=== PATIENT | female | born 1945 | race Caucasian/White ===

== ENCOUNTER 2017-06-19 01:06 | Inpatient (IN) | payer MEDICARE ==
[~2017-06-19] VITALS: Ht 172.7 cm; Wt 77.8 kg
[~2017-06-19 01:06] MED LIST: METO25TA2 PO; TELM40TA PO
[2017-06-19] MEDS ORDERED: blood pressure med (01:36)
[2017-06-19] MEDS ORDERED: MONT10TA6 PO (01:36)
[2017-06-19] MEDS ORDERED: FAMO-79 PO (01:36)
[2017-06-19] MEDS ORDERED: METOPROLOL 1 MG/ML, 5ML ONE ×3 (01:55→02:32)
[2017-06-19] MEDS: METOPROLOL 1 MG/ML, 5ML IVPush PRN ×3 (01:58→02:36)
[2017-06-19] MEDS ORDERED: SODIUM CHLORIDE 0.9% 1,000ML IVBOLUS ONE (02:00)
[2017-06-19] MEDS ORDERED: SODIUM CHLORIDE FLUSH 10ML SYR IVF ONE (02:00)
[2017-06-19 02:15] LABS: BLOOD UREA NITROGEN 23 mg/dL (7-18)
[2017-06-19 02:19] LABS: IS PT STATUS REG ER OR PRE ER? YES
[2017-06-19] MEDS ORDERED: POTASSIUM CHLORIDE 20 MEQ TAB.ER.PRT PO ONE ×2 (02:30→07:30)
[2017-06-19] MEDS ORDERED: DOCUSATE 100 MG CAPSULE PO PRN (03:30)
[2017-06-19] MEDS ORDERED: BISACODYL 10 MG SUPP PR PRN (03:30)
[2017-06-19] MEDS ORDERED: ACETAMINOPHEN 325 MG TABLET PO PRN (03:30)
[2017-06-19] MEDS ORDERED: POLYETHYLENE GLYCOL 17 GM PACKET PO PRN (03:30)
[2017-06-19] MEDS ORDERED: FUROSEMIDE 40 MG/4 ML IV ONE (03:30)
[2017-06-19] MEDS ORDERED: ZOLPIDEM 5MG TABLET PO PRN (03:30)
[2017-06-19] MEDS ORDERED: ONDANSETRON 2MG/ML, 2ML IVPush PRN (03:30)
[2017-06-19 03:51] VITALS: BP 146/94
[2017-06-19] MEDS: METOPROLOL TARTRATE 25 MG TABLET PO SCH ×2 (05:22→11:30)
[2017-06-19 08:04] VITALS: BP 123/74
[2017-06-19 08:30] LABS: BLOOD UREA NITROGEN 19 mg/dL (7-18)
[2017-06-19 08:35] LABS: IS PT STATUS REG ER OR PRE ER? NO
[2017-06-19] MEDS ORDERED: MONTELUKAST 10 MG TABLET PO SCH (09:00)
[2017-06-19] MEDS ORDERED: LOSARTAN 50MG TABLET PO SCH (09:00)
[2017-06-19] MEDS ORDERED: FAMOTIDINE 20 MG TABLET PO SCH (09:00)
[2017-06-19] MEDS ORDERED: LEVO50TA PO (12:36)
[2017-06-19] MEDS ORDERED: LOPE2CAP94 PO (12:42)
== END 2017-06-19 14:06 | disposition home or self-care (01) | DRG 310 ==
LOC: ED 02:11 → EDIP 02:25 → 5SO 03:46
PROVIDERS: ATTEND Hospitalist
DX: I48.91 Unspecified atrial fibrillation (principal); D86.9 Sarcoidosis, unspecified; I48.92 Unspecified atrial flutter; E03.9 Hypothyroidism, unspecified; E78.5 Hyperlipidemia, unspecified; E87.6 Hypokalemia; I10 Essential (primary) hypertension; Z82.49 Family history of ischemic heart disease and other diseases of the circulatory system; Z87.820 Personal history of traumatic brain injury; Z87.891 Personal history of nicotine dependence; Z95.1 Presence of aortocoronary bypass graft; Z88.1 Allergy status to other antibiotic agents; Z88.6 Allergy status to analgesic agent
CPT/HCPCS: 36415; 71010; 80048; 82040; 83605; 83735; 84443; 84484; 85025; 85610; 85730; 93005; 93306; 96361; 96374; J1940; J7030

== ENCOUNTER → 2017-08-03 | Outpatient (CLI) | payer MEDICARE ==
[~2017-08-03] MED LIST changes: +FAMO-79 PO; +LEVO50TA PO; +LOPE2CAP94 PO; +MONT10TA6 PO; +blood pressure med
== END | disposition home or self-care (01) ==
LOC: CFH 08:47
PROVIDERS: ATTEND Family Medicine
DX: I10 Essential (primary) hypertension (principal)
CPT/HCPCS: 71020

== ENCOUNTER → 2017-08-17 | Outpatient (CLI) | payer MEDICARE | LOC: CFH 09:37 | PROVIDERS: ATTEND Internal Medicine Cardiovascular Disease | DX: I48.91 Unspecified atrial fibrillation (principal) | CPT/HCPCS: 71020 ==

== ENCOUNTER 2017-08-23 08:00 | Inpatient (IN) | payer MEDICARE ==
[~2017-08-23] VITALS: Ht 172.7 cm; Wt 77.7 kg
[2017-08-23] MEDS: LEVOTHYROXINE 50 MCG TABLET PO SCH (06:00)
[2017-08-23 08:30] VITALS: BP 132/84
[2017-08-23] MEDS ORDERED: PLEASE ENTER HEIGHT AND WEIGHT MC SCH (08:30)
[2017-08-23] MEDS ORDERED: ALBU8.5H8 INH (08:45)
[2017-08-23] MEDS ORDERED: MV-M1CAP15 PO (08:45)
[2017-08-23] MEDS ORDERED: CYAN200014 PO (08:45)
[2017-08-23] MEDS ORDERED: METH500C3 PO (08:45)
[2017-08-23] MEDS ORDERED: SPIR25TA3 PO (08:45)
[2017-08-23] MEDS ORDERED: POTA10TA11 PO (08:45)
[2017-08-23] MEDS ORDERED: BISACODYL 5 MG EC TABLET PO PRN (09:00)
[2017-08-23] MEDS ORDERED: BISACODYL 10 MG SUPP PR PRN (09:00)
[2017-08-23] MEDS ORDERED: ZOLPIDEM 5MG TABLET PO PRN (09:00)
[2017-08-23] MEDS: FAMOTIDINE 20 MG TABLET PO SCH ×2 (09:00→22:52)
[2017-08-23] MEDS ORDERED: ACETAMINOPHEN 325 MG TABLET PO PRN (09:00)
[2017-08-23] MEDS: POTASSIUM CHLORIDE 10 MEQ TABLET.ER PO SCH (09:00)
[2017-08-23] MEDS: LOSARTAN 50MG TABLET PO SCH (09:00)
[2017-08-23] MEDS ORDERED: ONDANSETRON 2MG/ML, 2ML IVPush PRN (09:00)
[2017-08-23 09:07] LABS: HEMATOCRIT 43.5 % (34.6-47.8); HEMOGLOBIN 14.6 g/dL (11.7-16.4); WHITE BLOOD COUNT 3.6 x10^3/uL (3.4-10)
[2017-08-23 09:20] LABS: BLOOD UREA NITROGEN 24 mg/dL (7-18)
[2017-08-23 09:32] LABS: ASPARTATE AMINO TRANSFERASE 16 U/L (15-37)
[2017-08-23] MEDS ORDERED: TEMPLATE NON-FORMULARY MED. (Telmisartan 80 MG) PO SCH (10:00)
[2017-08-23 11:03] VITALS: BP 134/79
[2017-08-23] MEDS: SODIUM CHLORIDE FLUSH 10ML SYR IVF SCH ×2 (11:05→22:52)
[2017-08-23] MEDS: AMIODARONE 200 MG TABLET PO SCH ×3 (11:05→22:52)
[2017-08-23 13:14] VITALS: BP 129/70
[2017-08-23 17:54] VITALS: BP 132/81
[2017-08-23] MEDS ORDERED: FLU VACC QS2017-18 (36MOS+) UP/PF 0.5 ML IM-VACC ONE (18:00)
[2017-08-23 21:20] VITALS: BP 129/79
[2017-08-24 03:59] VITALS: BP 124/76
[2017-08-24] MEDS: LEVOTHYROXINE 50 MCG TABLET PO SCH (06:42)
[2017-08-24 10:04] VITALS: BP 152/95
[2017-08-24] MEDS: AMIODARONE 200 MG TABLET PO SCH ×3 (10:06→21:20)
[2017-08-24] MEDS: POTASSIUM CHLORIDE 10 MEQ TABLET.ER PO SCH (10:07)
[2017-08-24] MEDS: SPIRONOLACTONE 25 MG TABLET PO SCH (10:07)
[2017-08-24] MEDS: LOSARTAN 50MG TABLET PO SCH (10:07)
[2017-08-24] MEDS: FAMOTIDINE 20 MG TABLET PO SCH ×2 (10:07→21:20)
[2017-08-24] MEDS: SODIUM CHLORIDE FLUSH 10ML SYR IVF SCH ×2 (10:07→22:59)
[2017-08-24 13:50] VITALS: BP 106/66
[2017-08-24 16:57] VITALS: BP 129/72
[2017-08-24 19:36] VITALS: BP 105/56
[2017-08-25 01:11] VITALS: BP 126/77
[2017-08-25] MEDS: LEVOTHYROXINE 50 MCG TABLET PO SCH (06:29)
[2017-08-25 08:57] VITALS: BP 131/81
[2017-08-25] MEDS: SODIUM CHLORIDE FLUSH 10ML SYR IVF SCH (09:00)
[2017-08-25] MEDS: AMIODARONE 200 MG TABLET PO SCH (09:15)
[2017-08-25] MEDS: POTASSIUM CHLORIDE 10 MEQ TABLET.ER PO SCH (09:15)
[2017-08-25] MEDS: LOSARTAN 50MG TABLET PO SCH (09:15)
[2017-08-25] MEDS: FAMOTIDINE 20 MG TABLET PO SCH (09:15)
[2017-08-25] MEDS: SPIRONOLACTONE 25 MG TABLET PO SCH (09:16)
[2017-08-25] MEDS ORDERED: AMIO200T42 PO (12:53)
[2017-08-25 13:24] VITALS: BP 142/83
== END 2017-08-25 17:17 | disposition home or self-care (01) | DRG 309 ==
LOC: 5SO 08:10
PROVIDERS: ADMIT Internal Medicine Cardiovascular Disease; ATTEND Internal Medicine Cardiovascular Disease
DX: I48.0 Paroxysmal atrial fibrillation (principal); D68.69 Other thrombophilia; I11.9 Hypertensive heart disease without heart failure; E78.5 Hyperlipidemia, unspecified; D86.9 Sarcoidosis, unspecified; E03.9 Hypothyroidism, unspecified; K21.9 Gastro-esophageal reflux disease without esophagitis; Z87.891 Personal history of nicotine dependence; Z88.8 Allergy status to other drugs, medicaments and biological substances; R00.1 Bradycardia, unspecified; T44.7X5A Adverse effect of beta-adrenoreceptor antagonists, initial encounter
CPT/HCPCS: 36415; 71020; 80053; 84443; 85025; 93005

== ENCOUNTER 2017-10-29 22:19 | Emergency (ER) | payer MEDICARE ==
[~2017-10-29] VITALS: Ht 172.7 cm; Wt 80.6 kg
[~2017-10-29 22:19] MED LIST changes: +ALBU8.5H8 INH; +AMIO200T42 PO; +CYAN200014 PO; +METH500C3 PO; +MV-M1CAP15 PO; +POTA10TA11 PO; +SPIR25TA3 PO
[2017-10-29] MEDS ORDERED: AMIO200T42 PO (22:39)
[2017-10-30 00:41] VITALS: BP 107/57
== END 2017-10-30 00:42 | disposition home or self-care (01) ==
LOC: ED 23:02
DX: S09.90XA Unspecified injury of head, initial encounter (principal); Z95.1 Presence of aortocoronary bypass graft; W19.XXXA Unspecified fall, initial encounter; Y93.89 Activity, other specified; Y92.89 Other specified places as the place of occurrence of the external cause; Y99.9 Unspecified external cause status
CPT/HCPCS: 70450; 99284

== ENCOUNTER → 2018-04-13 | Outpatient (CLI) | payer MEDICARE | END | disposition home or self-care (01) | LOC: CFH 11:10 | PROVIDERS: ATTEND Internal Medicine Hematology & Oncology | DX: D69.6 Thrombocytopenia, unspecified (principal); Z83.2 Family history of diseases of the blood and blood-forming organs and certain disorders involving the immune mechanism | CPT/HCPCS: 71046 ==

== ENCOUNTER → 2018-04-25 | Outpatient (CLI) | payer MEDICARE ==
[~2018-04-25] MED LIST changes: +REGADENOSON 0.4 MG/5 ML SYRINGE ONE
== END | disposition home or self-care (01) ==
LOC: CFH 11:51
PROVIDERS: ATTEND Internal Medicine Cardiovascular Disease
DX: R94.31 Abnormal electrocardiogram [ECG] [EKG] (principal); R07.89 Other chest pain
CPT/HCPCS: 78452; 93017; A9502; J2785

== ENCOUNTER → 2018-07-18 | Outpatient (CLI) | payer MEDICARE ==
[~2018-07-18] MED LIST changes: -REGADENOSON 0.4 MG/5 ML SYRINGE ONE; -SPIR25TA3 PO; +SPIR25TA5 PO
== END | disposition home or self-care (01) ==
LOC: CFH 10:43
PROVIDERS: ATTEND Internal Medicine Cardiovascular Disease
DX: I34.9 Nonrheumatic mitral valve disorder, unspecified (principal); I36.8 Other nonrheumatic tricuspid valve disorders; I48.91 Unspecified atrial fibrillation; R00.2 Palpitations
CPT/HCPCS: 71046

== ENCOUNTER 2018-11-16 09:00 | Inpatient (IN) | payer MEDICARE ==
[~2018-11-16] VITALS: Ht 172.7 cm; Wt 83.0 kg
[2018-11-16 10:58] LABS: ANION GAP 9 mmol/L (5-15); CALCIUM 8.4 mg/dL (8.5-10.1); CHLORIDE 106 mmol/L (98-107); CHOLESTEROL, TOTAL 275 mg/dL (140-239); CREATININE 1.58 mg/dL (0.55-1.02)
[2018-11-16 11:08] LABS: FREE T4 (FREE THYROXINE) 1.13 ng/dL (0.76-1.46); HDL CHOLESTEROL (DIRECT) 71 mg/dL (40-60); TRIGLYCERIDES 106 mg/dL (50-200); VLDL CHOLESTEROL 21 mg/dL (0-25)
[2018-11-16 11:47] LABS: CHOL/HDL RATIO 3.9; HDL CHOL % 26 % (28-40); LDL CHOLESTEROL,CALCULATED 183 mg/dL (54-169); LDL/HDL RATIO 2.6 (0.5-3.0)
[2018-11-16 13:15] VITALS: BP 104/63
[2018-11-16] MEDS: LOSARTAN 50MG TABLET PO SCH ×2 (13:19→21:27)
[2018-11-16] MEDS: SOTALOL 80MG TABLET PO SCH ×2 (13:19→21:17)
[2018-11-16] MEDS: LEVOTHYROXINE 125 MCG TABLET PO SCH (13:20)
[2018-11-16] MEDS: TRIAMTERENE/HCTZ 75/50MG TABLET PO SCH (13:30)
[2018-11-16 20:20] VITALS: BP 117/57
[2018-11-16] MEDS: POTASSIUM CHLORIDE 10 MEQ TABLET.ER PO SCH (21:17)
[2018-11-16] MEDS: SODIUM CHLORIDE FLUSH 10ML SYR IVF SCH (21:17)
[2018-11-17 01:56] VITALS: BP 108/65
[2018-11-17] MEDS ORDERED: ONDANSETRON 2MG/ML, 2ML IVPush PRN (02:30)
[2018-11-17] MEDS ORDERED: ACETAMINOPHEN 325 MG TABLET PO PRN (02:30)
[2018-11-17] MEDS ORDERED: BISACODYL 10 MG SUPP PR PRN (02:30)
[2018-11-17] MEDS ORDERED: ZOLPIDEM 5MG TABLET PO PRN (02:30)
[2018-11-17] MEDS: LEVOTHYROXINE 125 MCG TABLET PO SCH (06:13)
[2018-11-17 08:02] VITALS: BP 123/73
[2018-11-17] MEDS: SOTALOL 80MG TABLET PO SCH ×2 (09:23→16:55)
[2018-11-17] MEDS: TRIAMTERENE/HCTZ 75/50MG TABLET PO SCH (09:24)
[2018-11-17] MEDS: SODIUM CHLORIDE FLUSH 10ML SYR IVF SCH ×2 (09:24→21:17)
[2018-11-17] MEDS: POTASSIUM CHLORIDE 10 MEQ TABLET.ER PO SCH (09:24)
[2018-11-17 12:57] VITALS: BP 125/77
[2018-11-17] MEDS ORDERED: SOTA80TA PO (13:59)
[2018-11-17 19:59] VITALS: BP_SYST 103; BP_SYST 94; BP_DIAS 54; BP_DIAS 62
[2018-11-17] MEDS ORDERED: LOSARTAN 50MG TABLET PO SCH (21:00)
[2018-11-18 02:19] VITALS: BP 110/64
[2018-11-18] MEDS: LEVOTHYROXINE 125 MCG TABLET PO SCH (06:25)
[2018-11-18 07:14] VITALS: BP 127/67
[2018-11-18] MEDS: POTASSIUM CHLORIDE 10 MEQ TABLET.ER PO SCH (08:34)
[2018-11-18] MEDS: TRIAMTERENE/HCTZ 75/50MG TABLET PO SCH (08:34)
[2018-11-18] MEDS: SOTALOL 80MG TABLET PO SCH (08:34)
[2018-11-18] MEDS: SODIUM CHLORIDE FLUSH 10ML SYR IVF SCH (08:35)
== END 2018-11-18 12:35 | disposition home or self-care (01) | DRG 309 ==
LOC: 5SO 09:02 → DCLOUNGE 11-18 11:15
PROVIDERS: ADMIT Internal Medicine Cardiovascular Disease; ATTEND Internal Medicine Cardiovascular Disease
DX: I48.0 Paroxysmal atrial fibrillation (principal); D68.69 Other thrombophilia; N17.9 Acute kidney failure, unspecified; D86.9 Sarcoidosis, unspecified; E03.9 Hypothyroidism, unspecified; E11.9 Type 2 diabetes mellitus without complications; E78.5 Hyperlipidemia, unspecified; I11.9 Hypertensive heart disease without heart failure; I45.10 Unspecified right bundle-branch block; Z87.891 Personal history of nicotine dependence; Z87.828 Personal history of other (healed) physical injury and trauma; Z79.899 Other long term (current) drug therapy
CPT/HCPCS: 36415; 71046; 80048; 80061; 84439; 84443; 85014; 85018; 93005; G0378

== ENCOUNTER 2019-05-01 07:32 | Outpatient (CLI) | payer MEDICARE ==
[~2019-05-01 07:32] MED LIST changes: +SOTA80TA PO
== END 2019-05-01 23:59 | disposition home or self-care (01) ==
LOC: CFH 07:32
PROVIDERS: ATTEND Nurse Practitioner Primary Care
DX: Z12.31 Encounter for screening mammogram for malignant neoplasm of breast (principal)
CPT/HCPCS: 77063; 77067

== ENCOUNTER 2019-05-15 08:11 | Day surgery (SDC) | payer MEDICARE ==
[~2019-05-15] VITALS: Ht 172.7 cm; Wt 77.3 kg
[2019-05-15] MEDS ORDERED: LEVO137T2 PO (08:49)
[2019-05-15] MEDS ORDERED: TRIA1TAB PO (08:49)
[2019-05-15] MEDS ORDERED: Iron PO (08:52)
[2019-05-15] MEDS ORDERED: MELA3TAB2 PO (08:53)
[2019-05-15] MEDS ORDERED: CHOL2000 PO (08:53)
[2019-05-15 08:58] VITALS: BP 143/72
[2019-05-15] MEDS ORDERED: PLEASE ENTER HEIGHT AND WEIGHT MC SCH (09:00)
[2019-05-15] MEDS ORDERED: SODIUM CHLORIDE 0.9% 1,000 ML IV SCH (09:00)
[2019-05-15] MEDS ORDERED: PROPOFOL 10 MG/ML, 20ML ONE (10:07)
== END 2019-05-15 12:02 | disposition home or self-care (01) ==
LOC: CACL 08:11
PROVIDERS: ATTEND Internal Medicine Cardiovascular Disease
DX: I08.1 Rheumatic disorders of both mitral and tricuspid valves (principal); I10 Essential (primary) hypertension; E78.5 Hyperlipidemia, unspecified; I25.10 Atherosclerotic heart disease of native coronary artery without angina pectoris; E03.9 Hypothyroidism, unspecified; I48.91 Unspecified atrial fibrillation; Z88.1 Allergy status to other antibiotic agents; Z88.8 Allergy status to other drugs, medicaments and biological substances
CPT/HCPCS: 93312; 93325; J2704

== ENCOUNTER 2020-03-20 12:57 | Emergency (ER) | payer MEDICARE ==
[~2020-03-20] VITALS: Ht 172.7 cm; Wt 75.7 kg
[~2020-03-20 12:57] MED LIST changes: +CHOL2000 PO; +Iron PO; +LEVO137T2 PO; +LOPE-114 PO; -LOPE2CAP94 PO; +MELA3TAB56 PO; +TRIA1TAB PO
[2020-03-20] MEDS ORDERED: SODIUM CHLORIDE 0.9%, 500ML IVBOLUS ONE (13:30)
[2020-03-20] MEDS ORDERED: DILTIAZEM 5 MG/ML, 5ML IVPush ONE (13:30)
[2020-03-20 13:37] LABS: BASOPHILS # (AUTO) 0.05 x10^3/uL (0-0.1); BASOPHILS % (AUTO) 1 % (0-1); EOSINOPHILS # (AUTO) 0.08 x10^3/uL (0-0.4); EOSINOPHILS % (AUTO) 1 % (1-7); LYMPHOCYTES # (AUTO) 1.66 x10^3/uL (1-3.4); LYMPHOCYTES % (AUTO) 27 % (22-44); MD NO; MEAN CORPUSCULAR HEMOGLOBIN 31.5 pg (27.0-34.8); MEAN CORPUSCULAR HGB CONC 33.3 g/dL (32.4-35.8); MEAN CORPUSCULAR VOLUME 94.6 fL (80-100); MEAN PLATELET VOLUME 8.3 fL (7.4-10.4); MONOCYTES # (AUTO) 0.49 x10^3/uL (0.2-0.8); MONOCYTES % (AUTO) 8 % (2-9); NEUTROPHILS # (AUTO) 3.95 x10^3/uL (1.8-6.8); NEUTROPHILS % (AUTO) 64 % (42-75); PLATELET COUNT 172 x10^3/uL (130-400); RED BLOOD COUNT 5.05 x10^6/uL (3.82-5.3)
[2020-03-20] MEDS ORDERED: DILTIAZEM 5 MG/ML, 5ML ONE (13:39)
[2020-03-20 13:46] LABS: ALANINE AMINOTRANSFERASE 23 U/L (12-78); ALBUMIN 4.2 g/dL (3.4-5.0); ANION GAP 5 mmol/L (5-15); CALCIUM 9.6 mg/dL (8.5-10.1); CHLORIDE 106 mmol/L (98-107); CREATININE 1.89 mg/dL (0.55-1.02)
--- NOTE | 2020-03-20 13:50 | NUR ---
PT MEDICATED WITH ORDERED ANTI-ARRYTHMIC. WILL CONTINUE TO MONITOR. ORDERED FLUID BOLUS GIVE WELL.
[2020-03-20 13:51] LABS: ALKALINE PHOSPHATASE 88 U/L (45-117); BILIRUBIN,TOTAL 0.8 mg/dL (0.2-1.0); TROPONIN I < 0.015 ng/mL (0.000-0.045)
[2020-03-20] MEDS ORDERED: SPIR25TA5 PO (13:51)
[2020-03-20] MEDS ORDERED: [UNRECOGNIZED DRUG - OTHER] (13:51)
[2020-03-20] MEDS ORDERED: TURM1POW PO (13:54)
[2020-03-20] MEDS ORDERED: OMEG-123 PO (13:54)
[2020-03-20] MEDS ORDERED: POTA99TA24 PO (13:56)
[2020-03-20] MEDS ORDERED: SODIUM CHLORIDE FLUSH 10ML SYR IVF ONE (14:00)
--- NOTE | 2020-03-20 14:02 | NUR ---
PT HR IMPROVED TO 70s, REMAINS IN A-FIB. HERMELINDO PABON TO CONSULT WITH DR. AMEZQUITA.
[2020-03-20 14:17] LABS: FREE T4 (FREE THYROXINE) 1.54 ng/dL (0.76-1.46)
--- NOTE | 2020-03-20 14:33 | NUR ---
PT REFUSING CARDIOVERSION AND DOES NOT WANT TO BE ADMITTED AT THIS TIME. ERP CONSULTING CARDIOLOGY.
[2020-03-20 14:57] VITALS: BP 114/69
== END 2020-03-20 14:59 | disposition home or self-care (01) ==
LOC: ED 13:15
DX: I48.20 Chronic atrial fibrillation, unspecified (principal); R42 Dizziness and giddiness; R11.0 Nausea; R05 Cough; R00.0 Tachycardia, unspecified; I10 Essential (primary) hypertension; Z88.8 Allergy status to other drugs, medicaments and biological substances
CPT/HCPCS: 36415; 71045; 80053; 83880; 84439; 84443; 84481; 84484; 85025; 93005; 96374; 99285; J7040; 96361

== ENCOUNTER 2020-03-20 18:13 | Emergency (ER) | payer MEDICARE ==
[~2020-03-20] VITALS: Ht 172.7 cm; Wt 75.9 kg
[~2020-03-20 18:13] MED LIST changes: +OMEG-123 PO; +POTA99TA24 PO; +TURM1POW PO; +[UNRECOGNIZED DRUG - OTHER]
--- NOTE | 2020-03-20 18:35 | NUR ---
PT AMBULATED TO ROOM WITH A STEADY GAIT.
--- NOTE | 2020-03-20 18:41 | NUR ---
PT PRESENTED TO ED D/T TACHYCARDIA. PT HR NOW 66.
--- NOTE | 2020-03-20 18:46 | NUR ---
PT DENIES ANY CP OR HEART PALPITATIONS AT THIS TIME.
--- NOTE | 2020-03-20 18:53 | NUR ---
REPORT TO MONICA PRICE TO ASSUME PRIMARY CARE OF PT.
--- NOTE | 2020-03-20 19:01 | NUR ---
PT RESTING ON JACKIE. MONITORING IN PLACE, CALL LIGHT WITHIN REACH, ALL SAFETY MEASURES IN PLACE. PT UPDATED ON POC.
[2020-03-20 20:28] VITALS: BP 96/52
== END 2020-03-20 20:30 | disposition home or self-care (01) ==
LOC: ED 19:31
DX: I48.0 Paroxysmal atrial fibrillation (principal); R00.1 Bradycardia, unspecified; I10 Essential (primary) hypertension; E87.6 Hypokalemia; I45.10 Unspecified right bundle-branch block
CPT/HCPCS: 93005; 99283

== ENCOUNTER → 2020-05-11 | Outpatient (CLI) | payer MEDICARE ==
[~2020-05-11] MED LIST changes: +MELA3TAB31 PO; -MELA3TAB56 PO
[2020-05-11 12:21] LABS: ANION GAP 8 mmol/L (5-15); CALCIUM 9.5 mg/dL (8.5-10.1); CHLORIDE 106 mmol/L (98-107); CREATININE 1.36 mg/dL (0.55-1.02)
== END | disposition home or self-care (01) ==
LOC: LAB 11:25
PROVIDERS: ATTEND Internal Medicine
DX: I13.0 Hypertensive heart and chronic kidney disease with heart failure and stage 1 through stage 4 chronic kidney disease, or unspecified chronic kidney disease (principal); N18.9 Chronic kidney disease, unspecified; I48.91 Unspecified atrial fibrillation; E03.9 Hypothyroidism, unspecified; D86.9 Sarcoidosis, unspecified; R93.1 Abnormal findings on diagnostic imaging of heart and coronary circulation; Q23.3 Congenital mitral insufficiency; R23.4 Changes in skin texture; K59.1 Functional diarrhea; F07.81 Postconcussional syndrome; M85.9 Disorder of bone density and structure, unspecified; R79.9 Abnormal finding of blood chemistry, unspecified; E78.2 Mixed hyperlipidemia; Z12.4 Encounter for screening for malignant neoplasm of cervix; Z12.39 Encounter for other screening for malignant neoplasm of breast; Z12.11 Encounter for screening for malignant neoplasm of colon; Z13.220 Encounter for screening for lipoid disorders
CPT/HCPCS: 36415; 80048; 84439; 84443; 84481

== ENCOUNTER → 2021-05-20 | Outpatient (CLI) | payer MEDICARE | END | disposition home or self-care (01) | LOC: RAD 15:22 | PROVIDERS: ATTEND Nurse Practitioner Primary Care | DX: M17.11 Unilateral primary osteoarthritis, right knee (principal) ==

== ENCOUNTER 2021-07-17 12:39 | Emergency (ER) | payer MEDICARE ==
[~2021-07-17] VITALS: Ht 157.5 cm; Wt 82.6 kg
--- NOTE | 2021-07-17 13:08 | NUR ---
PT AMBULATORY TO ROOM FROM TRIAGE, CHANGED INTO GOWN, ALL MONITORS IN PLACE. PT C/O PALPITATIONS STARTING TODAY. PT DENIES ANY CP/SOB AND ANY OTHER SYMPTOMS. PT STATED SHE WAS EATING A POPSICLE AND FELT HER HR INCREASE AND BECOME "ERRATIC". CALL LIGHT WITHIN REACH, BED IN LOWEST POSITON, BED RAILS UP X2
[2021-07-17] MEDS ORDERED: OMEP40CA8 PO (13:12)
[2021-07-17] MEDS ORDERED: SOTA120T26 PO (13:12)
[2021-07-17] MEDS ORDERED: TRIA1TAB5 PO (13:12)
--- NOTE | 2021-07-17 13:13 | NUR ---
ERP AT BS FOR EVAL
--- NOTE | 2021-07-17 13:44 | NUR ---
REPORT TO MONICA ARRIOLA
--- NOTE | 2021-07-17 13:47 | NUR ---
ASSUMED CARE OF PATIENT. PATIENT RESTING IN ROOM. 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 NSR NOTED. CALL LIGHT IN PLACE. WILL CONTINUE TO MONITOR.
[2021-07-17 14:03] LABS: ANION GAP 5 mmol/L (5-15); CHLORIDE 109 mmol/L (98-107); CREATININE 1.02 mg/dL (0.55-1.02)
--- NOTE | 2021-07-17 14:30 | NUR ---
DR FERRIS HAS UPDATED PATIENT
[2021-07-17 14:31] VITALS: BP 141/67
== END 2021-07-17 14:52 | disposition home or self-care (01) ==
LOC: ED 14:50
DX: I48.0 Paroxysmal atrial fibrillation (principal); J15.9 Unspecified bacterial pneumonia; R05 Cough; I10 Essential (primary) hypertension
CPT/HCPCS: 36415; 71045; 80048; 93005; 99285

== ENCOUNTER 2021-08-04 16:10 | Inpatient (IN) | payer MEDICARE ==
[~2021-08-04] VITALS: Ht 172.7 cm; Wt 81.0 kg
[~2021-08-04 16:10] MED LIST changes: +OMEP40CA8 PO; +SOTA120T26 PO; +TRIA1TAB5 PO
--- NOTE | 2021-08-04 16:26 | NUR ---
ALEXANDER RN: THIS IS A76 YEAR OLD FEMALE WHO WAS BIB AMBULANCE DUE TO HAVING A UNWITNESS SYNCOPAL EPISODE. PT STATES SHE WS UNABLE TO GET HER SELF TO THE GROUND BEFORE "PASSING OUT". PT DENIES HITTING HEAD, HX OF AFIB AND BLOOD THINNERS. PT ON BUSINESS SYSTEMS ARCHITECT SINSUS, SPO2 AND CYCLE VS. AWAIT MD FOR ORDERS. e
[2021-08-04 16:54] LABS: BASOPHILS % (AUTO) 1 % (0-1); EOSINOPHILS % (AUTO) 0 % (1-7); LYMPHOCYTES % (AUTO) 13 % (22-44); MEAN CORPUSCULAR HEMOGLOBIN 28.7 pg (27.0-34.8); MEAN CORPUSCULAR HGB CONC 33.2 g/dL (32.4-35.8); MEAN PLATELET VOLUME 8.4 fL (7.4-10.4); MONOCYTES % (AUTO) 9 % (2-9); NEUTROPHILS % (AUTO) 78 % (42-75); PLATELET COUNT 104 x10^3/uL (130-400); RED BLOOD COUNT 5.36 x10^6/uL (3.82-5.3); RED CELL DISTRIBUTION WIDTH 14.1 % (9.6-15.2)
--- NOTE | 2021-08-04 16:59 | NUR ---
PT IN US
[2021-08-04 17:04] LABS: ALANINE AMINOTRANSFERASE 19 U/L (12-78); ALBUMIN 2.8 g/dL (3.4-5.0); ANION GAP 6 mmol/L (5-15); CHLORIDE 100 mmol/L (98-107); CREATININE 0.93 mg/dL (0.55-1.02)
--- NOTE | 2021-08-04 17:11 | NUR ---
PT BACK FROM CT.
[2021-08-04 17:14] LABS: ALKALINE PHOSPHATASE 93 U/L (45-117); BILIRUBIN,TOTAL 1.1 mg/dL (0.2-1.0); TOTAL PROTEIN 6.5 g/dL (6.4-8.2); TROPONIN I < 0.015 ng/mL (0.000-0.045)
[2021-08-04] MEDS ORDERED: POTASSIUM CHLORIDE 20 MEQ TAB.ER.PRT PO ONE (17:30)
[2021-08-04 17:35] LABS: FREE T4 (FREE THYROXINE) 1.94 ng/dL (0.76-1.46)
[2021-08-04 17:44] LABS: MICROSCOPIC INDICATED
--- NOTE | 2021-08-04 17:56 | NUR ---
pt resting in bed. vss. nadn. to be admitted.
[2021-08-04] MEDS ORDERED: OXYcodone IR 5MG TABLET PO PRN (19:00)
[2021-08-04] MEDS ORDERED: LABETALOL 5MG/ML, 20ML IVPush PRN (19:00)
[2021-08-04] MEDS: ENOXAPARIN 40 MG/0.4 ML SQ SCH (19:00)
[2021-08-04] MEDS ORDERED: GUAIFENESIN/DM 200-20MG, 10ML UDC PO PRN (19:00)
[2021-08-04] MEDS ORDERED: ONDANSETRON 2MG/ML, 2ML IVPush PRN (19:00)
--- NOTE | 2021-08-04 19:05 | NUR ---
YELLOW MED REQ SLIP SENT FOR [facility] IN LR.
[2021-08-04] MEDS ORDERED: ENOXAPARIN 40 MG/0.4 ML ONE (19:07)
[2021-08-04] MEDS ORDERED: FAMOTIDINE 20 MG TABLET ONE (19:23)
--- NOTE | 2021-08-04 19:23 | NUR ---
med req slip sent for [facility]
[2021-08-04] MEDS: ACETAMINOPHEN 500 MG TABLET PO SCH ×2 (19:27→23:30)
[2021-08-04] MEDS: PIPERACILLIN/TAZO 3.375 GM in DEXTROSE 5% 50 ML IV SCH (19:27)
[2021-08-04] MEDS: FAMOTIDINE 20 MG TABLET PO SCH (19:28)
[2021-08-04] MEDS: SOTALOL 120MG TABLET PO SCH (20:02)
[2021-08-04] MEDS: POTASSIUM CHLORIDE 40 MEQ in LACTATED RINGERS 1,000 ML IV SCH (20:02)
[2021-08-04] MEDS ORDERED: MELATONIN 5 MG TABLET PO PRN (21:00)
--- NOTE | 2021-08-04 21:03 | NUR ---
report called to Ulises ANDERSON
[2021-08-04] MEDS ORDERED: ALBUTEROL HFA 90 MCG/SPRAY INH PRN (23:00)
[2021-08-05 00:55] VITALS: BP 95/66
[2021-08-05] MEDS: PIPERACILLIN/TAZO 3.375 GM in DEXTROSE 5% 50 ML IV SCH ×5 (01:30→23:28)
[2021-08-05 02:00] VITALS: BP 95/66
[2021-08-05] MEDS: ACETAMINOPHEN 500 MG TABLET PO SCH ×6 (04:12→23:27)
[2021-08-05 05:22] LABS: BASOPHILS % (AUTO) 0 % (0-1); EOSINOPHILS % (AUTO) 0 % (1-7); LYMPHOCYTES % (AUTO) 20 % (22-44); MEAN CORPUSCULAR HEMOGLOBIN 28.9 pg (27.0-34.8); MEAN CORPUSCULAR HGB CONC 33.2 g/dL (32.4-35.8); MEAN PLATELET VOLUME 8.7 fL (7.4-10.4); MONOCYTES % (AUTO) 10 % (2-9); NEUTROPHILS % (AUTO) 70 % (42-75); PLATELET COUNT 88 x10^3/uL (130-400); RED BLOOD COUNT 5.05 x10^6/uL (3.82-5.3)
[2021-08-05 05:31] LABS: ANION GAP 4 mmol/L (5-15); CALCIUM 8.4 mg/dL (8.5-10.1); CHLORIDE 103 mmol/L (98-107); CREATININE 1.05 mg/dL (0.55-1.02)
[2021-08-05 05:34] VITALS: BP 103/69
[2021-08-05] MEDS: POTASSIUM CHLORIDE 40 MEQ in LACTATED RINGERS 1,000 ML IV SCH ×2 (06:27→19:44)
[2021-08-05] MEDS: LEVOTHYROXINE 125 MCG TABLET PO SCH (06:27)
[2021-08-05] MEDS: CYANOCOBALAMIN 1,000 MCG TABLET PO SCH (07:59)
[2021-08-05] MEDS: SOTALOL 120MG TABLET PO SCH ×2 (07:59→20:59)
[2021-08-05 08:00] VITALS: BP 104/66
[2021-08-05] MEDS: CHOLECALCIFEROL 1,000 UNIT TABLET PO SCH (08:00)
[2021-08-05] MEDS: MULTIVITAMINS/MINERALS TABLET PO SCH (08:00)
[2021-08-05] MEDS: SPIRONOLACTONE 25 MG TABLET PO SCH (08:00)
[2021-08-05 13:43] VITALS: BP 88/55
[2021-08-05] MEDS: ENOXAPARIN 40 MG/0.4 ML SQ SCH (19:00)
[2021-08-05 19:02] VITALS: BP 122/76
[2021-08-05] MEDS: FAMOTIDINE 20 MG TABLET PO SCH (20:59)
[2021-08-06 00:11] VITALS: BP 117/76
[2021-08-06] MEDS: ACETAMINOPHEN 500 MG TABLET PO SCH ×4 (03:39→15:52)
[2021-08-06] MEDS: LEVOTHYROXINE 125 MCG TABLET PO SCH (06:00)
[2021-08-06] MEDS: POTASSIUM CHLORIDE 40 MEQ in LACTATED RINGERS 1,000 ML IV SCH (06:26)
[2021-08-06] MEDS: SOTALOL 120MG TABLET PO SCH (08:17)
[2021-08-06] MEDS: PIPERACILLIN/TAZO 3.375 GM in DEXTROSE 5% 50 ML IV SCH ×2 (08:17→13:45)
[2021-08-06 08:20] VITALS: BP 142/84
[2021-08-06] MEDS: CHOLECALCIFEROL 1,000 UNIT TABLET PO SCH (08:31)
[2021-08-06] MEDS: MULTIVITAMINS/MINERALS TABLET PO SCH (08:31)
[2021-08-06] MEDS: SPIRONOLACTONE 25 MG TABLET PO SCH (08:32)
[2021-08-06] MEDS: CYANOCOBALAMIN 1,000 MCG TABLET PO SCH (08:32)
[2021-08-06] MEDS ORDERED: LEVO750T6 PO (13:23)
[2021-08-06 13:48] VITALS: BP 128/79
[2021-08-07] MEDS ORDERED: LEVO750T6 PO (11:06)
[2021-08-19] MEDS ORDERED: APIX5TAB PO (22:01)
[2021-08-20] MEDS ORDERED: APIX2.5T PO (08:37)
[2021-08-20] MEDS ORDERED: SOTA120T26 PO (08:37)
[2021-08-20] MEDS ORDERED: METH500C3 PO (09:00)
[2021-08-21] MEDS ORDERED: DILT120C2 PO (08:09)
[2021-08-21] MEDS ORDERED: METO-93 PO (10:21)
== END 2021-08-06 16:51 | disposition home or self-care (01) | DRG 177 ==
LOC: ED 18:20 → EDIP 19:20 → 4WST 23:01
PROVIDERS: ADMIT Internal Medicine; ATTEND Internal Medicine
DX: U07.1 COVID-19 (principal); J96.01 Acute respiratory failure with hypoxia; J12.82 Pneumonia due to coronavirus disease 2019; E03.9 Hypothyroidism, unspecified; E05.90 Thyrotoxicosis, unspecified without thyrotoxic crisis or storm; E87.6 Hypokalemia; I10 Essential (primary) hypertension; K21.9 Gastro-esophageal reflux disease without esophagitis; I48.0 Paroxysmal atrial fibrillation; I45.10 Unspecified right bundle-branch block; E11.9 Type 2 diabetes mellitus without complications; Z88.1 Allergy status to other antibiotic agents; Z95.1 Presence of aortocoronary bypass graft; Z88.6 Allergy status to analgesic agent
CPT/HCPCS: 36415; 70450; 71045; 72110; 80048; 80053; 81001; 83605; 83735; 84145; 84439; 84443; 84481; 84484; 85025; 87040; 87086; 93005; 96365; 99285; G0378; J2543; J3480; U0005; J7120; U0003

== ENCOUNTER 2021-08-19 17:04 | Observation (INO) | payer MEDICARE ==
[~2021-08-19] VITALS: Ht 172.7 cm; Wt 80.2 kg
[2021-08-21 12:32] VITALS: BP 109/69
== END 2021-08-21 14:27 | disposition home or self-care (01) ==
LOC: ED 20:36 → EDIP 22:32 → INTOOBSV 22:32 → 5SO 08-20 13:47
PROVIDERS: ADMIT Family Medicine; ATTEND Hospitalist
DX: I48.20 Chronic atrial fibrillation, unspecified (principal); A04.72 Enterocolitis due to Clostridium difficile, not specified as recurrent; I48.0 Paroxysmal atrial fibrillation; E03.9 Hypothyroidism, unspecified; R94.31 Abnormal electrocardiogram [ECG] [EKG]; D86.9 Sarcoidosis, unspecified; E11.9 Type 2 diabetes mellitus without complications; I10 Essential (primary) hypertension; E78.5 Hyperlipidemia, unspecified; N28.9 Disorder of kidney and ureter, unspecified; K21.9 Gastro-esophageal reflux disease without esophagitis; H54.7 Unspecified visual loss; I34.0 Nonrheumatic mitral (valve) insufficiency; N64.4 Mastodynia; Z95.1 Presence of aortocoronary bypass graft; Z95.2 Presence of prosthetic heart valve; Z88.8 Allergy status to other drugs, medicaments and biological substances; Z79.01 Long term (current) use of anticoagulants; Z86.16 Personal history of COVID-19; Z79.899 Other long term (current) drug therapy
CPT/HCPCS: 36415; 71045; 80053; 83735; 84100; 84443; 84484; 85025; 93005; 96374; 96375; 99285; G0378; J2704